=== PATIENT | male | born 1975 | race Hispanic/Latino ===

== ENCOUNTER 2022-03-02 13:38 | Emergency (ER) | payer OTHER ==
[~2022-03-02] VITALS: Ht 175.3 cm; Wt 81.6 kg
[2022-03-02] MEDS ORDERED: PENICILLIN G BENZATHINE LA 1.2 MILUNITS/2 ML SYG IM ONE (14:00)
[2022-03-02] MEDS ORDERED: PENICILLIN G BENZATHINE LA 1.2 MILUNITS/2 ML SYG IM STA (14:22)
[2022-03-02] MEDS ORDERED: HYDR42CR3 TP (14:39)
[2022-03-02 15:08] VITALS: BP 99/65
== END 2022-03-02 15:08 | disposition home or self-care (01) ==
LOC: EDH 13:38
DX: R21 Rash and other nonspecific skin eruption (principal); Z20.2 Contact with and (suspected) exposure to infections with a predominantly sexual mode of transmission; F17.200 Nicotine dependence, unspecified, uncomplicated
CPT/HCPCS: 99284; 96372 ×2; J0561 ×2